=== PATIENT | female | born 1960 | race African-American/Black ===

== ENCOUNTER 2016-08-16 08:27 | Emergency (ER) | payer MEDICAID ==
[~2016-08-16] VITALS: Ht 167.6 cm; Wt 75.0 kg
[~2016-08-16 08:27] MED LIST: CEPH500C2 PO; FLUO10TA3; IBUP-777 PO; NAPROXEN; PROT40; TRAZ-132; VENTOLIN HFA; VIC
[2016-08-16] MEDS ORDERED: SODIUM CHLORIDE 0.9% 1,000 ML IV ONE (08:49)
[2016-08-16] MEDS ORDERED: ONDANSETRON HCL 4MG/2ML VIAL IV STA (08:49)
[2016-08-16] MEDS ORDERED: FAMOTIDINE 20MG/2ML VIAL IV ONE (09:00)
[2016-08-16 09:08] LABS: HEMATOCRIT. 42.5 % (36.0-48.0); HEMOGLOBIN. 14.2 g/dL (12.0-16.0); MEAN CORPUSCULAR HEMOGLOBIN 28.6 pg (28.0-32.0); MEAN CORPUSCULAR HGB CONC 33.3 g/dL (31.0-37.0); MEAN CORPUSCULAR VOLUME 85.9 fL (81.0-99.0); MEAN PLATELET VOLUME 7.7 fl (7.4-10.4); PLATELET 310 x1000/uL (130-400); RED BLOOD CELL COUNT 4.95 mill/uL (4.2-5.4); RED CELL DISTRIBUTION WIDTH 14.7 % (11.6-14.6); WHITE BLOOD COUNT 15.8 x1000/uL (4.5-11.0)
[2016-08-16 09:09] LABS: DIFFERENTIAL COMMENT 1
[2016-08-16 09:25] LABS: ALANINE AMINOTRANSFERASE 16 IU/L (13-61); ANION GAP 13; CALCIUM 9.2 mg/dL (8.5-10.1); CARBON DIOXIDE 28 mEq/L (21-32); CHLORIDE 107 mEq/L (98-107); INDEX HEMOLYSI 1 (1-3); INDEX ICTERIC 1 (1-4); INDEX LIPEMIC 1 (1-3); LIPASE 96 IU/L (73-393); UREA NITROGEN BLOOD 18 mg/dL (7-21); eGFR > 60 mL/min (>60)
[2016-08-16 09:27] LABS: PROTHROMBIN TIME 10.6 sec
[2016-08-16 09:42] LABS: PLATELET ESTIMATE NORMAL
[2016-08-16 13:47] VITALS: BP 131/76
== END 2016-08-16 13:45 | disposition home or self-care (01) ==
LOC: ER 08:27
DX: K29.70 Gastritis, unspecified, without bleeding (principal); I10 Essential (primary) hypertension; F17.210 Nicotine dependence, cigarettes, uncomplicated; Z88.1 Allergy status to other antibiotic agents; Z79.1 Long term (current) use of non-steroidal anti-inflammatories (NSAID); Z79.899 Other long term (current) drug therapy; Z90.710 Acquired absence of both cervix and uterus
CPT/HCPCS: 36415; 76705; 80053; 83690; 85025; 85610; 96374; 96375; 99285; J2405; J3490; J7030; Z7610